=== PATIENT | female | born 1960 | race Caucasian/White ===

== ENCOUNTER 2019-12-28 11:18 | Emergency (ER) | payer OTHER ==
[~2019-12-28] VITALS: Ht 160 cm; Wt 77.1 kg
--- NOTE | 2019-12-28 11:35 | NUR ---
NOTIFIED DR NUNES OF PT SYMPTOMS AND COMPLAINTS. DR NUNES NOW EXAMINING PT.
[2019-12-28 11:40] VITALS: BP 155/82
--- NOTE | 2019-12-28 11:42 | NUR ---
CALLED RADIOLOGY S/W JOSEE TO ACTIVATE CODE BRAIN PER DR. NUNES.
--- NOTE | 2019-12-28 12:10 | NUR ---
59 YO FEMALE CO SEVERE HEAD PAIN. PAIN IS 10/10 STABBINBG AND ON THE LEFT SIDE SINCE THIS MORNING. PT HAS A HX OF STROKE. NEURO ASSESSMENT ONLY SHOWED RESIDIUAL FROM THAT STROKE. PT HAS A HX OF FIBROMYALGIA, AND BLOOD CLOTS. PT IS CURENTLY TAKING BLOOD THINNERS. LABS AND RAD HAVE BEEN DONE AT BEDSIDE. EKG DONE PER ORDERS.
[2019-12-28] MEDS ORDERED: NACL 0.9% 1,000 ML IV ONE (12:15)
[2019-12-28] MEDS ORDERED: MORPHINE SULFATE 4 MG/ML SYR IVP ONE (12:15)
[2019-12-28] MEDS ORDERED: ONDANSETRON 4 MG/2 ML VIAL IVP ONE (12:15)
[2019-12-28 12:19] LABS: BASOPHILS # (AUTO) 0.1 K/uL (0.00-0.22); BASOPHILS % (AUTO) 1.3 % (0.0-2.0); EOSINOPHILS # (AUTO) 0.1 K/uL (0-0.4); EOSINOPHILS % (AUTO) 1.8 % (0.0-4.0); HEMATOCRIT 39.3 % (36-48); LYMPHOCYTES # (AUTO) 2.4 K/uL (2.5-16.5); LYMPHOCYTES % (AUTO) 37.8 % (20.5-51.1); MEAN CORPUSCULAR HEMOGLOBIN 30 pg (27-31); MEAN CORPUSCULAR HGB CONC 33 g/dL (33-37); MEAN CORPUSCULAR VOLUME 90.8 fL (80-94); MONOCYTES # (AUTO) 0.5 K/uL (0.8-1.0); MONOCYTES % (AUTO) 7.5 % (1.7-9.3); NEUTROPHILS # (AUTO) 3.2 K/uL (1.8-7.7); NEUTROPHILS % (AUTO) 51.6 % (42.2-75.2); PLATELET COUNT (AUTO) 301 K/uL (140-450); RED BLOOD CELL COUNT(AUTO) 4.33 MIL/uL (4.20-5.40); WHITE BLOOD COUNT (AUTO) 6.2 K/uL (4.8-10.8)
[2019-12-28 12:37] LABS: ALBUMIN 3.6 g/dL (3.4-5.0); ANION GAP 14.3 (8-16); CARBON DIOXIDE 25.9 mmol/L (21-32); CREATININE 0.8 mg/dL (0.6-1.3); POTASSIUM 4.2 mmol/L (3.5-5.1); TOTAL BILIRUBIN 0.2 mg/dL (0.0-1.0)
[2019-12-28 12:39] LABS: PROTHROMBIN TIME 9.5 secs (10.8-13.4)
[2019-12-28 12:44] LABS: APPEARANCE,URINE CLEAR (CLEAR); BILIRUBIN,URINE 1+ (NEGATIVE); BLOOD, URINE NEGATIVE (NEGATIVE); COLOR,URINE YELLOW (YELLOW); LEUKOCYTE ESTERASE ,URINE TRACE (NEGATIVE); NITRITE, URINE NEGATIVE (NEGATIVE); PH,URINE 6.5 (5.0-9.0); UGLUCOSE NEGATIVE (NEGATIVE)
[2019-12-28 13:43] LABS: RBC,URINE NONE SEEN /HPF (0-5); WBC,URINE 0-5 /HPF (0-5)
--- NOTE | 2019-12-28 14:11 | NUR ---
Patient discharged with v/s stable. Written and verbal after care instructions given and explained. Patient alert, oriented and verbalized understanding of instructions. Ambulatory with steady gait. All questions addressed prior to discharge. ID band removed. Patient advised to follow up with PMD. Rx of CODEINE PHOSPHATE AND AMOXICILLIAN given. Patient educated on indication of medication including possible reaction and side effects. Opportunity to ask questions provided and answered.
[2019-12-28 14:13] VITALS: BP 134/79
--- NOTE | 2019-12-28 14:13 | NUR ---
IV removed, catheter intact and site benign. Applied folded 4x4 gauze and tape to stop bleeding.
== END 2019-12-28 14:11 | disposition home or self-care (01) ==
LOC: MED 11:18
DX: J11.1 Influenza due to unidentified influenza virus with other respiratory manifestations (principal); R51 Headache; R42 Dizziness and giddiness; Z86.73 Personal history of transient ischemic attack (TIA), and cerebral infarction without residual deficits; Z98.890 Other specified postprocedural states
CPT/HCPCS: 36415; 70450; 71045; 80053; 81001; 84484; 85025; 85610; 86886; 86900; 86901; 87804; 93005; 96361; 96374; 96375; 99284; J2270; J2405; J7030; Q0092